=== PATIENT | female | born 1945 | race Caucasian/White ===

== ENCOUNTER → 2016-12-23 | Outpatient (CLI) | payer MEDICARE ==
[~2016-12-23] MED LIST: ALBU2.5V7 AEROSOL; ALBU8.5H INH; ALLO100T PO; ATEN25TA PO; BUDE0.5A IH; BUSP30TA8 PO; CHOL50006 PO; CITA-51 PO; CRAN425C PO; CYCL15CA PO; DOCU-168 PO; ESOM20CA PO; FORM20VI2 AEROSOL; GADOBUTROL 10mMol/10ml INJECTION IV ONE; ISOS30TA47 PO; MAGN250T33 PO; NITR12SP6 PO; POTA10TA92 PO; PRAV20TA48 PO; RANI150T7 PO; ROPI2TAB6 PO; SALINE FLUSH 10ml SYRINGE ONE; SPIR25TA4 PO; TORS100T2 PO
--- NOTE | 2016-12-23 15:56 | DI ---
Indication: ITS.REASON: R29.6 REPEATED FALLS; R20.0 ANESTHESIA OF SKIN; R93.0; G35 PROCEDURE: MRI THORACIC SPINE W/WO CONTRA: Encounter: Initial Comparison: MRI thoracic spine dated August 09, 2016 Technique: Multiplanar, multisequence, thoracic spine protocol MR imaging with and without contrast of the spine was acquired. Contrast: 6 mL of Gadavist FINDINGS: There is slightly exaggerated thoracic kyphosis. There is a mild compression fracture of the T9 vertebra which appears chronic as there is no surrounding edema. This may have been acute at the time of the 2005 exam is there is some edema within the superior endplate on that study. There is also a previously treated fracture of T11 and a chronic appearing mild superior endplate compression fracture of T10. Slight superior endplate compression deformity of T5 also without focal edema. Mild superior endplate deformity of T3 also appears chronic The remaining thoracic vertebral body heights are maintained. No evidence of focal disk protrusion or cord compression. The thoracic spinal cord signal intensity is normal. Paraspinal soft tissues show bilateral renal cysts. There pulmonary opacities in the lung bases, incompletely evaluated on this modality. Mild neural foraminal narrowing on the left at T9-T10 and T10-T11. No other areas of significant neural foraminal stenosis. No contrast enhancing masses seen within the spinal canal or vertebral bodies. Impression: Multiple old compression fractures. No acute abnormality identified. No evidence of spinal cord compression or spinal cord demyelinating lesion. .
--- NOTE | 2016-12-23 16:00 | DI ---
Indication: ITS.REASON: R29.6 REPEATED FALLS; R20.0 ANESTHESIA OF SKIN; R93.0; G35 PROCEDURE: MRI CERVICAL SPINE W/WO CONTRA: Encounter: Initial Comparison: None Technique: Multiplanar multisequence MR imaging of the cervical spine was performed with and without contrast. Contrast: 6 mL Gadavist Findings: Exam is severely limited by motion artifact and is borderline nondiagnostic. No obvious acute compression fracture or gross bone marrow edema appreciated. Postcontrast images show no obvious vertebral body or central spinal canal enhancing masses. Spinal cord signal intensity is difficult to evaluate given the severe artifact. The paraspinal soft tissues are grossly normal. Segmental analysis: C2-C3: Grossly normal C3-C4: Mild disk height loss with a disk osteophyte complex and uncovertebral degenerative change contributing to severe right and mild left neural foraminal stenosis. No significant central canal stenosis. C4-C5: Degenerative facet and uncovertebral changes on the left causing mild neural foraminal stenosis. No significant central canal or right neural foraminal narrowing. C5-C6: Central disk protrusion causing moderate central canal stenosis. Degenerative uncovertebral and facet changes, right greater than left with moderate right and mild left neural foraminal stenosis. C6-C7: Disk osteophyte complex without central canal or neural foraminal stenosis. C7-T1: Normal Impression: 1. Significantly limited exam due to motion artifact. No obvious enhancing mass or gross spinal cord lesion. 2. Disk protrusion at C5-C6 causing central canal stenosis. .
== END ==
LOC: IMA 12-16 14:09
PROVIDERS: ATTEND Electrodiagnostic Medicine
DX: G35 Multiple sclerosis (principal); M50.222 Other cervical disc displacement at C5-C6 level; R20.0 Anesthesia of skin; R29.6 Repeated falls; R93.0 Abnormal findings on diagnostic imaging of skull and head, not elsewhere classified
CPT/HCPCS: 72156; 72157; A9585